=== PATIENT | male | born 1985 | race African-American/Black ===

== ENCOUNTER 2016-10-09 10:36 | Emergency (ER) | payer OTHER ==
[~2016-10-09] VITALS: Ht 185.4 cm; Wt 105.3 kg
[2016-10-09 14:00] VITALS: BP 128/63
== END 2016-10-09 14:00 | disposition home or self-care (01) ==
LOC: EME 10:36
DX: S00.33XA Contusion of nose, initial encounter (principal); S00.81XA Abrasion of other part of head, initial encounter; Y04.0XXA Assault by unarmed brawl or fight, initial encounter
CPT/HCPCS: 70160; 99281; 99283